=== PATIENT | female | born 1975 | race African-American/Black ===

== ENCOUNTER 2018-01-25 10:16 | Emergency (ER) | payer MEDICAID ==
[~2018-01-25] VITALS: Ht 165.1 cm; Wt 146.9 kg
[~2018-01-25 10:16] MED LIST: AMLO5TAB4 PO; ASPI-864 PO; ATEN50TA PO; BENA20TA10 PO
[2018-01-25] MEDS ORDERED: LIDOCAINE HCL/PF 1% 10 MG/ML 5ML VIAL IJ ONE (10:45)
[2018-01-25] MEDS ORDERED: IBUPROFEN 600MG TABLET PO ONE (10:45)
[2018-01-25 11:14] LABS: BASOPHILS % 0.4 % (0.0-2.0); EOSINOPHILS % 2.4 % (0.0-5.0); HEMATOCRIT. 42.3 % (36.0-48.0); HEMOGLOBIN. 13.3 g/dL (12.0-16.0); LYMPHOCYTES % 25.3 % (20.0-50.0); MEAN CORPUSCULAR HEMOGLOBIN 24.6 pg (28.0-32.0); MEAN CORPUSCULAR VOLUME 78.3 fL (81.0-99.0); MEAN PLATELET VOLUME 8.5 fl (7.4-10.4); MONOCYTES % 11.9 % (2.0-8.0); PLATELET 247 x1000/uL (130-400); RED BLOOD CELL COUNT 5.41 mill/uL (4.2-5.4); RED CELL DISTRIBUTION WIDTH 14.1 % (11.6-14.6)
[2018-01-25 11:20] LABS: CHLORIDE 104 mEq/L (98-107)
[2018-01-25] MEDS ORDERED: BACITRACIN ZINC OINT UDPKT TOP ONE (13:15)
[2018-01-25 13:46] VITALS: BP 163/97
== END 2018-01-25 14:24 | disposition home or self-care (01) ==
LOC: ER 10:16
DX: L03.011 Cellulitis of right finger (principal); R07.89 Other chest pain
CPT/HCPCS: 10060; 36415; 71045; 80053; 81025; 83690; 84484; 85025; 93005; 99284; J3490

== ENCOUNTER 2018-04-14 23:10 | Emergency (ER) | payer MEDICAID ==
[~2018-04-14] VITALS: Ht 172.7 cm; Wt 160.0 kg
[2018-04-15] MEDS ORDERED: IBUPROFEN 800MG TABLET PO ONE (01:15)
[2018-04-15] MEDS ORDERED: BENAZEPRIL 5MG TABLET PO ONE (02:30)
[2018-04-15 04:20] VITALS: BP 157/92
== END 2018-04-15 04:39 | disposition home or self-care (01) ==
LOC: ER 23:10
DX: M94.0 Chondrocostal junction syndrome [Tietze] (principal); R05 Cough; I10 Essential (primary) hypertension
CPT/HCPCS: 71045; 93005; 99283; Z7610

== ENCOUNTER 2018-07-10 04:37 | Inpatient (IN) | payer MEDICAID ==
[~2018-07-10] VITALS: Ht 172.7 cm; Wt 151.5 kg
[2018-07-10 06:18] LABS: CLARITY URINE CLEAR (CLEAR); COLOR URINE YELLOW (YELLOW); KETONES URINE NEGATIVE (NEGATIVE); LEUKOCYTE ESTERASE URINE NEGATIVE (NEGATIVE); NITRITE URINE POSITIVE (NEGATIVE); OCCULT BLOOD URINE NEGATIVE (NEGATIVE); PROTEIN URINE NEGATIVE (NEGATIVE); SPECIFIC GRAVITY URINE 1.019 (1.005-1.030)
[2018-07-10] MEDS ORDERED: LORATADINE 10MG TABLET PO STA (06:21)
[2018-07-10] MEDS ORDERED: ALBUTEROL (0.083%) 2.5MG/3ML NEB HHN STA (06:21)
[2018-07-10] MEDS ORDERED: FLUTICASONE PROPIONATE 50MCG/SPRAY BOTTLE BOTHNSTRLS SCH (06:30)
[2018-07-10 07:49] LABS: HEMATOCRIT. 42.6 % (36.0-48.0); HEMOGLOBIN. 13.3 g/dL (12.0-16.0); MEAN CORPUSCULAR HEMOGLOBIN 24.7 pg (28.0-32.0); MEAN CORPUSCULAR VOLUME 78.9 fL (81.0-99.0); MEAN PLATELET VOLUME 8.5 fl (7.4-10.4); PLATELET 190 x1000/uL (130-400)
[2018-07-10 07:54] LABS: CHLORIDE 106 mEq/L (98-107)
[2018-07-10 08:10] LABS: PLATELET ESTIMATE NORMAL
[2018-07-10] MEDS ORDERED: FUROSEMIDE 40MG/4ML VIAL IVP ONE (08:45)
[2018-07-10] MEDS ORDERED: CLONIDINE 0.1MG TABLET PO PRN (09:45)
[2018-07-10] MEDS ORDERED: ACETAMINOPHEN 325MG TABLET PO PRN (09:45)
[2018-07-10] MEDS ORDERED: DOCUSATE SODIUM 100MG CAPSULE PO PRN (09:45)
[2018-07-10] MEDS ORDERED: DIPHENHYDRAMINE 50MG/ML VIAL IV PRN (09:45)
[2018-07-10] MEDS ORDERED: MAGNESIUM/ALUMINUM HYDROXIDE/SIMETHICONE 30ML UDC PO PRN (09:45)
[2018-07-10] MEDS ORDERED: ONDANSETRON HCL 4MG/2ML INJ IV PRN (09:45)
[2018-07-10] MEDS ORDERED: IPRATROPIUM/ALBUTEROL 0.5-3(2.5)MG/3ML NEB INH PRN (09:45)
[2018-07-10] MEDS ORDERED: HYDROCODONE/ACETAMINOPHEN 5/325MG TABLET PO PRN (09:45)
[2018-07-10] MEDS ORDERED: GUAIFENESIN 200MG/10ML SUGAR FREE UDC PO PRN (09:45)
[2018-07-10 09:54] LABS: PHOSPHORUS 3.4 mg/dL (2.5-4.9)
[2018-07-10 10:15] VITALS: BP 154/93
[2018-07-10 11:58] VITALS: BP 154/93
[2018-07-10] MEDS ORDERED: BENA5TAB6 MT (13:45)
[2018-07-10] MEDS ORDERED: AMLO2.5T45 MT (13:45)
[2018-07-10] MEDS ORDERED: METF100P3 MC (13:45)
[2018-07-10] MEDS ORDERED: TRAZ1POW (13:45)
[2018-07-10] MEDS ORDERED: ATEN-42 MT (13:45)
[2018-07-10] MEDS ORDERED: ARIP2TAB3 MT (13:45)
[2018-07-10] MEDS ORDERED: TRAZ-212 MT (13:45)
[2018-07-10] MEDS ORDERED: ESCI5TAB MT (13:45)
[2018-07-10] MEDS: ENOXAPARIN 40MG/0.4ML SYR SUBCUT SCH ×2 (14:07→21:01)
[2018-07-10 16:48] VITALS: BP 157/87
[2018-07-10] MEDS ORDERED: TRAMADOL 50MG TABLET PO PRN (17:45)
[2018-07-10 17:57] LABS: CREATINE KINASE MB FRACTION 1.7 ng/mL (0.5-3.6)
[2018-07-10] MEDS: IPRATROPIUM/ALBUTEROL 0.5-3(2.5)MG/3ML NEB HHN SCH (20:32)
[2018-07-10] MEDS: NITROFURANTOIN 100MG M/M CAPSULE PO SCH (20:59)
[2018-07-10] MEDS: GUAIFENESIN 600MG ER TABLET PO SCH (20:59)
[2018-07-10] MEDS ORDERED: IOHEXOL-350 100 ML BOTTLE ONE (21:06)
[2018-07-10 23:52] LABS: CREATINE KINASE MB FRACTION 1.7 ng/mL (0.5-3.6)
[2018-07-11 05:47] LABS: BASOPHILS % 0.3 % (0.0-2.0); EOSINOPHILS % 2.9 % (0.0-5.0); HEMOGLOBIN. 13.7 g/dL (12.0-16.0); LYMPHOCYTES % 35.4 % (20.0-50.0); MEAN CORPUSCULAR HEMOGLOBIN 24.9 pg (28.0-32.0); MEAN CORPUSCULAR VOLUME 78.1 fL (81.0-99.0); MEAN PLATELET VOLUME 8.4 fl (7.4-10.4); MONOCYTES % 14.3 % (2.0-8.0); NEUTROPHILS % 47.1 % (40.0-76.0); PLATELET 190 x1000/uL (130-400)
[2018-07-11 06:17] LABS: CHLORIDE 105 mEq/L (98-107)
[2018-07-11 06:36] LABS: LDL CHOLESTEROL 88 mg/dL (5-100)
[2018-07-11 06:37] LABS: HDL CHOLESTEROL 44 mg/dL (40-59)
[2018-07-11 08:00] VITALS: BP 149/94
[2018-07-11] MEDS: GUAIFENESIN 600MG ER TABLET PO SCH ×2 (09:20→21:32)
[2018-07-11] MEDS: NITROFURANTOIN 100MG M/M CAPSULE PO SCH ×2 (09:20→21:32)
[2018-07-11] MEDS: AMLODIPINE 5MG TABLET PO SCH ×2 (09:20→21:33)
[2018-07-11] MEDS: ENOXAPARIN 40MG/0.4ML SYR SUBCUT SCH ×2 (09:20→21:33)
[2018-07-11] MEDS: IPRATROPIUM/ALBUTEROL 0.5-3(2.5)MG/3ML NEB HHN SCH ×3 (10:01→19:58)
[2018-07-11 12:00] VITALS: BP 156/94
[2018-07-11 16:00] VITALS: BP 151/80
[2018-07-11 20:00] VITALS: BP 158/78
[2018-07-12] VITALS: BP 175/95
[2018-07-12 04:00] VITALS: BP 158/86
[2018-07-12 06:47] LABS: BASOPHILS % 0.4 % (0.0-2.0); EOSINOPHILS % 1.8 % (0.0-5.0); HEMOGLOBIN. 12.9 g/dL (12.0-16.0); LYMPHOCYTES % 36.3 % (20.0-50.0); MEAN CORPUSCULAR HEMOGLOBIN 25.1 pg (28.0-32.0); MEAN CORPUSCULAR VOLUME 77.9 fL (81.0-99.0); MEAN PLATELET VOLUME 8.7 fl (7.4-10.4); MONOCYTES % 13.1 % (2.0-8.0); NEUTROPHILS % 48.4 % (40.0-76.0); PLATELET 182 x1000/uL (130-400); RED BLOOD CELL COUNT 5.14 mill/uL (4.2-5.4); RED CELL DISTRIBUTION WIDTH 13.9 % (11.6-14.6)
[2018-07-12 07:17] LABS: CHLORIDE 108 mEq/L (98-107)
[2018-07-12] MEDS: IPRATROPIUM/ALBUTEROL 0.5-3(2.5)MG/3ML NEB HHN SCH (07:43)
[2018-07-12 08:00] VITALS: BP 161/93
[2018-07-12] MEDS: AMLODIPINE 5MG TABLET PO SCH (08:27)
[2018-07-12] MEDS: NITROFURANTOIN 100MG M/M CAPSULE PO SCH (08:27)
[2018-07-12] MEDS: GUAIFENESIN 600MG ER TABLET PO SCH (08:27)
[2018-07-12] MEDS: ENOXAPARIN 40MG/0.4ML SYR SUBCUT SCH (08:28)
[2018-07-12 12:00] VITALS: BP 152/95
[2018-07-12 12:50] VITALS: BP 152/95
== END 2018-07-12 14:46 | disposition home or self-care (01) | DRG 720 ==
LOC: ER 04:37 → 7WST 09:00 → ENRESERV 09:42 → 7WST 10:39
PROVIDERS: ADMIT Internal Medicine; ATTEND Internal Medicine
DX: A41.9 Sepsis, unspecified organism (principal); J96.00 Acute respiratory failure, unspecified whether with hypoxia or hypercapnia; N39.0 Urinary tract infection, site not specified; E66.01 Morbid (severe) obesity due to excess calories; I50.9 Heart failure, unspecified; E78.5 Hyperlipidemia, unspecified; F41.9 Anxiety disorder, unspecified; I11.0 Hypertensive heart disease with heart failure; Z98.891 History of uterine scar from previous surgery; R73.9 Hyperglycemia, unspecified; Z79.4 Long term (current) use of insulin; Z88.0 Allergy status to penicillin; Z88.5 Allergy status to narcotic agent; Z91.040 Latex allergy status; Z68.43 Body mass index [BMI] 50.0-59.9, adult
CPT/HCPCS: 36415; 71045; 71275; 80048; 80061; 82550; 82553; 83036; 83735; 83880; 84100; 84443; 84484; 93005; 93306; 93970; 94640; 96374; 97161; 97166; 99285; J1650; J1940; J7611; J7620; Q9967

== ENCOUNTER 2018-07-29 14:42 | Emergency (ER) | payer MEDICAID, OTHER ==
[~2018-07-29] VITALS: Ht 172.7 cm; Wt 153.0 kg
[~2018-07-29 14:42] MED LIST changes: +AMLO2.5T45 MT; +ARIP2TAB3 MT; +ATEN-42 MT; +BENA5TAB6 MT; +ESCI5TAB MT; +METF100P3 MC; +TRAZ-251 MT; +TRAZ1POW
[2018-07-29] MEDS ORDERED: IBUPROFEN 800MG TABLET PO ONE (15:45)
[2018-07-29] MEDS ORDERED: TRAMADOL 50MG TABLET PO PRN (15:45)
[2018-07-29 18:09] VITALS: BP 168/94
== END 2018-07-29 18:10 | disposition home or self-care (01) ==
LOC: ER 14:42
DX: R07.89 Other chest pain (principal); I10 Essential (primary) hypertension; E11.9 Type 2 diabetes mellitus without complications; Z79.899 Other long term (current) drug therapy
CPT/HCPCS: 36415; 71045; 83880; 84484; 93005; 99284

== ENCOUNTER 2019-11-10 09:40 | Emergency (ER) | payer OTHER ==
[~2019-11-10] VITALS: Ht 172.7 cm; Wt 157.8 kg
[2019-11-10 09:55] VITALS: BP 167/98
[2019-11-10] MEDS ORDERED: ALBUTEROL (0.083%) 2.5MG/3ML NEB HHN ONE (11:15)
[2019-11-10] MEDS ORDERED: PREDNISONE 20MG TABLET PO ONE (11:15)
[2019-11-10] MEDS ORDERED: IPRATROPIUM BROMIDE (0.02%) 0.5MG/2.5ML NEB HHN ONE (11:15)
== END 2019-11-10 13:24 | disposition home or self-care (01) ==
LOC: ER 09:40
DX: J45.901 Unspecified asthma with (acute) exacerbation (principal); I10 Essential (primary) hypertension; Z98.890 Other specified postprocedural states; Z79.899 Other long term (current) drug therapy; Z79.82 Long term (current) use of aspirin; Z88.0 Allergy status to penicillin; Z88.6 Allergy status to analgesic agent; Z91.040 Latex allergy status
CPT/HCPCS: 93005; 94640; 99283; J7512; Z7610

== ENCOUNTER 2020-09-29 10:09 | Emergency (ER) | payer MEDICAID ==
[~2020-09-29] VITALS: Ht 172.7 cm; Wt 160.0 kg
[2020-09-29] MEDS ORDERED: KETOROLAC 15MG/ML VIAL IV ONE (10:45)
[2020-09-29 10:48] VITALS: BP 160/93
[2020-09-29] MEDS ORDERED: ACET-2708 MT (11:50)
== END 2020-09-29 12:35 | disposition home or self-care (01) ==
LOC: ER 10:09
DX: M25.561 Pain in right knee (principal); I10 Essential (primary) hypertension; R73.03 Prediabetes; Z91.81 History of falling; M25.461 Effusion, right knee; E78.5 Hyperlipidemia, unspecified; E66.9 Obesity, unspecified; Z68.43 Body mass index [BMI] 50.0-59.9, adult; Z88.0 Allergy status to penicillin; Z88.5 Allergy status to narcotic agent; Z79.899 Other long term (current) drug therapy; Z91.040 Latex allergy status
CPT/HCPCS: 73562; 96374; 99283; J1885

== ENCOUNTER 2022-02-16 19:53 | Emergency (ER) | payer MEDICAID ==
[~2022-02-16] VITALS: Ht 172.7 cm; Wt 146.6 kg
[~2022-02-16 19:53] MED LIST changes: +ACET-2708 MT; +BENA-8 PO; -BENA20TA10 PO; +BENA5TAB40 MT; -BENA5TAB6 MT
[2022-02-16 19:56] VITALS: BP 172/120
[2022-02-16] MEDS ORDERED: LIDO120C7 TP (22:27)
[2022-02-16] MEDS ORDERED: KETOROLAC 30MG/ML VIAL IM ONE (22:30)
[2022-02-16 22:56] LABS: CLARITY URINE TURBID (CLEAR); COLOR URINE YELLOW (YELLOW); KETONES URINE 1+ (NEGATIVE); LEUKOCYTE ESTERASE URINE 2+ (NEGATIVE); NITRITE URINE NEGATIVE (NEGATIVE); OCCULT BLOOD URINE 1+ (NEGATIVE); PH URINE 5.5 (4.5-8.0); PROTEIN URINE 1+ (NEGATIVE); UROBILINOGEN URINE 0.2 E.U./dL (0.2-1.0)
[2022-02-16] MEDS ORDERED: CEPH500T PO (23:36)
== END 2022-02-17 | disposition home or self-care (01) ==
LOC: ER 19:53
DX: N39.0 Urinary tract infection, site not specified (principal); Z88.0 Allergy status to penicillin; Z91.040 Latex allergy status; Z88.5 Allergy status to narcotic agent; Z79.899 Other long term (current) drug therapy; Z98.890 Other specified postprocedural states; Z79.82 Long term (current) use of aspirin
CPT/HCPCS: 81003; 81025; 87086; 96372; 99283; J1885

== ENCOUNTER 2022-02-19 19:12 | Emergency (ER) | payer MEDICAID ==
[~2022-02-19] VITALS: Ht 172.7 cm; Wt 145.0 kg
[~2022-02-19 19:12] MED LIST changes: +CEPH500T PO; +LIDO120C7 TP
[2022-02-19] MEDS ORDERED: SODIUM CHLORIDE 0.9% 500 ML IV ONE (23:15)
[2022-02-19] MEDS ORDERED: CLINDAMYCIN 600 MG in DEXTROSE 5% WATER 50 ML IV ONE ×2 (23:15→23:30)
[2022-02-19] MEDS ORDERED: CLINDAMYCIN 600MG PREMIX 50 ML IV NR (23:30)
[2022-02-19] MEDS ORDERED: CLINDAMYCIN 600 MG in DEXTROSE 5% WATER 50 ML IV NR (23:30)
[2022-02-19 23:51] LABS: BASOPHILS % 0.3 % (0.0-2.0); EOSINOPHILS % 0.6 % (0.0-5.0); HEMATOCRIT. 42.4 % (36.0-48.0); HEMOGLOBIN. 13.6 g/dL (12.0-16.0); LYMPHOCYTES % 21.3 % (20.0-50.0); MEAN CORPUSCULAR VOLUME 78.2 fL (81.0-99.0); MEAN PLATELET VOLUME 8.9 fl (7.4-10.4); MONOCYTES % 9.1 % (2.0-8.0); NEUTROPHILS % 68.7 % (40.0-76.0); PLATELET 235 x1000/uL (130-400); RED BLOOD CELL COUNT 5.42 mill/uL (4.2-5.4); RED CELL DISTRIBUTION WIDTH 14.3 % (11.6-14.6)
[2022-02-19 23:59] LABS: CHLORIDE 108 mEq/L (98-107)
[2022-02-20] MEDS ORDERED: ONDANSETRON HCL 4MG/2ML INJ IV STA (00:57)
[2022-02-20] MEDS ORDERED: MORPHINE SULFATE 4 MG/ML CPJ (NOT FOR IM USE) IV STA (00:57)
[2022-02-20 01:13] VITALS: BP 158/113
[2022-02-20] MEDS ORDERED: PHEN-815 MT (01:34)
[2022-02-20] MEDS ORDERED: CLIN-194 MT (01:34)
[2022-02-20] MEDS ORDERED: ACYC200C31 PO (01:34)
[2022-02-20] MEDS ORDERED: TRAM50TA3 MT (01:35)
== END 2022-02-20 01:50 | disposition home or self-care (01) ==
LOC: ER 19:12
DX: N93.9 Abnormal uterine and vaginal bleeding, unspecified (principal); N39.0 Urinary tract infection, site not specified; A60.04 Herpesviral vulvovaginitis; R00.0 Tachycardia, unspecified; I11.0 Hypertensive heart disease with heart failure; I50.9 Heart failure, unspecified; E11.65 Type 2 diabetes mellitus with hyperglycemia; E78.00 Pure hypercholesterolemia, unspecified; Z79.899 Other long term (current) drug therapy; Z79.84 Long term (current) use of oral hypoglycemic drugs; Z88.0 Allergy status to penicillin; Z88.5 Allergy status to narcotic agent; Z91.040 Latex allergy status
CPT/HCPCS: 36415; 71045; 80053; 85025; 87040; 96365; 96375; 99284; J2270; J2405; J3490; J7030; Z7610; J7060

== ENCOUNTER 2022-03-14 10:58 | Emergency (ER) | payer MEDICAID ==
[~2022-03-14] VITALS: Ht 172.7 cm; Wt 136.0 kg
[~2022-03-14 10:58] MED LIST changes: +ACYC200C31 PO; +CLIN-194 MT; +PHEN-815 MT; +TRAM50TA3 MT
[2022-03-14 12:03] VITALS: BP 165/89
[2022-03-14 15:13] LABS: CLARITY URINE CLOUDY (CLEAR); COLOR URINE DARK YELLOW (YELLOW); KETONES URINE NEGATIVE (NEGATIVE); LEUKOCYTE ESTERASE URINE 2+ (NEGATIVE); NITRITE URINE POSITIVE (NEGATIVE); OCCULT BLOOD URINE NEGATIVE (NEGATIVE); PH URINE 5.5 (4.5-8.0); PROTEIN URINE TRACE (NEGATIVE); SPECIFIC GRAVITY URINE 1.028 (1.005-1.030)
[2022-03-14] MEDS ORDERED: DIF15 MT (15:50)
[2022-03-14] MEDS ORDERED: CEFP200T13 MT (15:50)
== END 2022-03-14 16:17 | disposition home or self-care (01) ==
LOC: ER 10:58
DX: R10.2 Pelvic and perineal pain (principal); F41.9 Anxiety disorder, unspecified; F32.9 Major depressive disorder, single episode, unspecified; E78.00 Pure hypercholesterolemia, unspecified; I10 Essential (primary) hypertension; Z79.899 Other long term (current) drug therapy
CPT/HCPCS: 81003; 99283